=== PATIENT | female | born 1930 | race Hispanic/Latino ===

== ENCOUNTER 2017-02-16 12:24 | Emergency (ER) | payer MEDICARE ==
[2017-02-16 13:36] VITALS: BP 163/80; PULSE 62; RESP 18; TEMP 97.8; O2SAT 97
--- NOTE | 2017-02-16 14:50 | ED PDOC ---
HPI: General Adult Time Seen by Provider: 02/16/17 14:47 Chief Complaint (Nursing): Trauma Chief Complaint (Provider): fall History Per: Patient History/Exam Limitations: no limitations Onset/Duration Of Symptoms: Gradual Current Symptoms Are (Timing): Still Present Severity: Mild Additional Complaint(s): 86yo female taking Warfarin, Digoxin, comes to the ED for evaluation after a fall which occurred 2 days ago. States she hit the right posterior head at the time against something when she fell. Patient states she has a headache and feels more unsteady than is normal for her. Also reports feeling like her left eye is blurry but she thinks this may be chronic. No nausea, vomit, back pain. no back pain. yes neck pain. No nausea or vomit. PMD: in [facility] Past Medical History Reviewed: Historical Data, Nursing Documentation, Vital Signs Vital Signs: Last Vital Signs Temp 97.8 F 02/16/17 13:31 Pulse 62 02/16/17 13:31 Resp 18 02/16/17 13:31 BP 163/80 H 02/16/17 13:31 Pulse Ox 97 02/16/17 15:01 - Medical History PMH: Atrial Fibrillation Other PMH: macular degeneration right eye - Surgical History Other surgeries: oophorectomy - Family History Family History: States: Unknown Family Hx - Living Arrangements Living Arrangements: With Family - Social History Drugs: Denies - Home Medications Home Medications: Ambulatory Orders Medication Instructions Recorded Acetaminophen 650 mg PO Q4 PRN #25 tab 02/16/17 - Allergies Allergies/Adverse Reactions: Allergies Allergy/AdvReac Type Severity Reaction Status Date / Time No Known Allergies Allergy Verified 02/16/17 13:30 Review of Systems ROS Statement: Except As Marked, All Systems Reviewed And Found Negative Gastrointestinal: Negative for: Nausea, Vomiting Musculoskeletal: Negative for: Back Pain Neurological: Positive for: Headache Physical Exam - Reviewed Nursing Documentation Reviewed: Yes Vital Signs Reviewed: Yes - Physical Exam Appears: Positive for: Well, Non-toxic, No Acute Distress Head Exam: Positive for: ATRAUMATIC, NORMAL INSPECTION, NORMOCEPHALIC Skin: Positive for: Warm, Dry Cardiovascular/Chest: Positive for: Regular Rate, Rhythm Respiratory: Positive for: Normal Breath Sounds. Negative for: Rales, Rhonchi, Wheezing Gastrointestinal/Abdominal: Positive for: Soft. Negative for: Tenderness Extremity: Positive for: Other (Abrasion to right forearm, contusion to right elbow, abrasion and contusion to right shoulder, all appear to be a few days old.) Neurologic/Psych: Positive for: Gait (slightly unsteady) - Laboratory Results Result Diagrams: 02/16/17 15:40 02/16/17 15:40 - ECG O2 Sat by Pulse Oximetry: 97 Medical Decision Making Medical Decision Makin [place] for traumatic fall [address] Brain ordered. Labs and EKG. EKG afib w slow ventricular response. Dig level added on and therapeutic. INR subtherapeutic. CBC unremarkable. XRays shoulder and elbow no fracture per radiologist. CT brain and CSpine reports reviewed, no ICH or fractures. Tylenol given w resolution of symptoms. Explained to patient and family member risk/benefit of coumadin use if falls reoccur. Discuss w PMD. Followup ophtho and PMD. Disposition - Clinical Impression Clinical Impression: Head injury, Concussion, Shoulder contusion, Elbow sprain - Patient ED Disposition Is Patient to be Admitted: No Counseled Patient/Family Regarding: Studies Performed, Diagnosis, Need For Followup, Rx Given - Disposition Referrals: Jose Angel Paiz MD [Staff Provider] - Abhi Pitt MD [Staff Provider] - Disposition: Routine/Home Disposition Time: 17:35 Condition: STABLE Additional Instructions: See neurologist for further testing. Return to ER for any new or worsening symptoms. Discuss your fall with your doctor, you may need to stop your blood thinning medications if you are at risk of further falls. Prescriptions: Acetaminophen 650 mg PO Q4 PRN #25 tab PRN Reason: Pain, Moderate (4-7) Instructions: Concussion (ED), Head Injury (ED), Contusion in Adults (ED), Abrasion (ED) - POA Present On Arrival: Falls Or Trauma Additional Comments - Additional Comments Additional Comments: Scribe Attestation Documented by Klaus Peguero acting as a scribe for Jd Edmonds DO. Provider Attestation All medical record entries made by the Scribe were at my direction and personally dictated by me. I have reviewed the chart and agree that the record accurately reflects my personal performance of the history, physical exam, medical decision making, and the department course for this patient. I have also personally directed, reviewed, and agree with the discharge instructions and disposition
--- NOTE | 2017-02-16 15:49 | RAD ---
PROCEDURE: Radiographs of the Right Shoulder HISTORY: Fall COMPARISON: No prior. FINDINGS: BONES: There is no acute displaced fracture or dislocation. Bone alignment is normal. There is diffuse bone demineralization. JOINTS: Normal. Glenohumeral and acromioclavicular joints preserved. No osteoarthritis. SOFT TISSUES: Normal. OTHER FINDINGS: None. IMPRESSION: No acute displaced fracture or dislocation.
--- NOTE | 2017-02-16 15:50 | RAD ---
PROCEDURE: Radiographs of the right elbow. HISTORY: fall COMPARISON: No prior. FINDINGS: BONES: There is no acute displaced fracture or dislocation. Bone alignment is normal.There is diffuse bone demineralization. JOINTS: There is mild degenerative osteoarthrosis. SOFT TISSUES: Normal. JOINT EFFUSION: None. OTHER FINDINGS: None. IMPRESSION: No acute displaced fracture or dislocation.
[2017-02-16 15:57] LABS: BASO # 0.1 K/uL (0.0-0.2); BASO % 1.5 % (0.0-2.0); EOS # 0.2 K/uL (0.0-0.7); EOS % 3.2 % (0.0-4.0); HEMATOCRIT 41.1 % (34.0-47.0); LYMPH # 1.7 K/uL (1.0-4.3); LYMPH % 30.9 % (20.0-40.0); MEAN CELL VOLUME 98.7 fl (81.0-99.0); MEAN CORPUSCULAR HEMOGLOBIN 32.8 pg (27.0-31.0); MEAN CORPUSCULAR HGB CONC 33.3 g/dL (33.0-37.0); MEAN PLATELET VOLUME 9.5 fl (7.2-11.7); MONO # 0.5 K/uL (0.0-0.8); MONO % 9.3 % (0.0-10.0); NEUT # 3.1 K/uL (1.8-7.0); NEUT % 55.1 % (50.0-75.0); NRBC % 0.1 % (0.0-0.0); RED CELL DISTRIBUTION WIDTH 13.9 % (11.5-14.5); WHITE BLOOD COUNT 5.6 K/uL (4.8-10.8)
[2017-02-16 16:13] LABS: PARTIAL THROMBOPLASTIN TIME 32.9 SECONDS (23.3-32.5)
--- NOTE | 2017-02-16 16:14 | CT ---
PROCEDURE: CT HEAD WITHOUT CONTRAST. HISTORY: r/o ICH COMPARISON: None available. TECHNIQUE: Axial computed tomography images were obtained through the head/brain without intravenous contrast. Radiation dose: Total exam DLP = 813.20 mGy-cm. This CT exam was performed using one or more of the following dose reduction techniques: Automated exposure control, adjustment of the mA and/or kV according to patient size, and/or use of iterative reconstruction technique. FINDINGS: HEMORRHAGE: No intracranial hemorrhage. BRAIN: There is no mass, mass effect or abnormal extra-axial fluid collection. There are mild chronic microangiopathic changes. There are coarse atherosclerotic calcifications in the cavernous carotid arteries. VENTRICLES: There is mild age-related global parenchymal volume loss and proportionate enlargement of the ventricles and cortical sulci. CALVARIUM: There is moderate hyperostosis frontalis interna.There is no calvarial fracture or extracranial soft tissue swelling. PARANASAL SINUSES: Unremarkable as visualized. No significant inflammatory changes. MASTOID AIR CELLS: Unremarkable as visualized. No inflammatory changes. OTHER FINDINGS: None. IMPRESSION: No acute intracranial abnormality. Mild chronic microangiopathic changes and mild age-related global parenchymal volume loss.
[2017-02-16 16:17] LABS: ALKALINE PHOSPHATASE 279 U/L (38-126); ALT/SGPT 56 U/L (9-52); AST/SGOT 77 U/L (14-36); BILIRUBIN,TOTAL 1.2 mg/dl (0.2-1.3); BLOOD UREA NITROGEN 20 mg/dl (7-17); CALCIUM 10.3 mg/dL (8.4-10.2); CARBON DIOXIDE 25 mmol/L (22-30); CHLORIDE 102 mmol/L (98-107); GFR AFRICAN-AMERICAN > 60; GLUCOSE,RANDOM 93 mg/dL (65-105); POTASSIUM 4.2 MMOL/L (3.6-5.0); SODIUM 138 mmol/l (132-148); TOTAL PROTEIN 9.1 G/DL (6.3-8.2)
--- NOTE | 2017-02-16 16:54 | CT ---
PROCEDURE: CT Cervical Spine without contrast HISTORY: <trauma r/o fx> COMPARISON: None available. TECHNIQUE: Axial computed tomography images were obtained of the cervical spine without the use of intravenous contrast. Coronal and sagittal reformatted images were created and reviewed. Radiation dose: Total exam DLP = 351 mGy-cm. This CT exam was performed using one or more of the following dose reduction techniques: Automated exposure control, adjustment of the mA and/or kV according to patient size, and/or use of iterative reconstruction technique. FINDINGS: VERTEBRAE: No fracture. Normal alignment. No destructive bony lesion. DISCS/SPINAL CANAL/NEURAL FORAMINA: No significant central canal or neural foraminal stenosis. Multilevel disc space narrowing and midcervical disc bulging. PARASPINAL SOFT TISSUES: Unremarkable. OTHER FINDINGS: None. IMPRESSION: No fracture.
--- NOTE | 2017-02-17 08:15 | CARD ---
APPROVED REPORT EKG Measurement Heart [id number] <Conclusion> Atrial fibrillation with slow ventricular response Right bundle branch block T wave abnormality, consider inferolateral ischemia Abnormal ECG
== END 2017-02-16 18:19 | disposition home or self-care (01) ==
LOC: H.ER 12:24
DX: S09.90XA Unspecified injury of head, initial encounter (principal); S06.0X0A Concussion without loss of consciousness, initial encounter; S40.012A Contusion of left shoulder, initial encounter; S50.01XA Contusion of right elbow, initial encounter; W19.XXXA Unspecified fall, initial encounter; Y92.89 Other specified places as the place of occurrence of the external cause; H35.30 Unspecified macular degeneration; I45.10 Unspecified right bundle-branch block; I48.91 Unspecified atrial fibrillation